=== PATIENT | female | born 1995 | race Caucasian/White ===

== ENCOUNTER 2023-08-13 02:21 | Emergency (ER) | payer OTHER, SELFPAY ==
[2023-08-13 02:23] VITALS: BP 132/81
[2023-08-13 02:37] VITALS: BP 158/85
[2023-08-13 02:39] VITALS: BMI 45.3
--- NOTE | 2023-08-13 02:46 | ED.GENMED ---
History of Present Illness
<CASTRO Small - Last Filed: 08/13/23 06:25>
General
Chief Complaint: Abdominal Pain
Source: patient
Exam Limitations: none
Time Seen by Provider: 08/13/23 02:32
Nursing documentation reviewed up to this point in time: agreed with
Travel History
Have you had any contact with someone who has COVID-19?: No
Do you have any symptoms of coronavirus? Fever > 100 degrees, chills, cough, shortness of breath, sore throat, loss of taste or smell, muscle aches, or headache?: No
History of Present Illness
History of Present Illness:
Pt is a 28 year old female with a PMH of MDD who presents to the ED c/o abdominal pain x 4 hours. Pt states she had a gallbladder attack 4 years ago and the pain she is experiencing today feels very similar. The pain is localized to her mid upper
abdomen and radiates to the right side of her abdomen. It is a constant pain that becomes more intense at times. She is also having associated nausea and 1 episode of emesis. Pt states she had a salad from [employer] for dinner and the pain started after
that. She adds that she is having trouble taking a normal deep breath. She denies any fever, chills, hematemesis, CP, bile in her vomit, lightheadedness, dizziness, LOC, or diarrhea.
Pt denies any alcohol, drug or tobacco use. Pt states she was told that she had a couple of stones in her gallbladder during her last attack. Pt denies any surgical history.
Past History
<CASTRO Small - Last Filed: 08/13/23 06:25>
Past History
ED Past Medical History: Psychiatric (major depressive disorder)
ED Past Surgical History: None
Patient has exhibited threatening behavior?: No
Social History
Tobacco: Non-smoker
Alcohol: None
Drug: None
Living: with family
Family History
Family History: Hypertension and Other (cholecystectomy in mother)
Review of Systems
<[place] CASTRO Gillis - Last Filed: 08/13/23 06:25>
Review of Systems
Allergies reviewed?: Yes
All Other Systems: ROS reviewed and negative except as documented in HPI and ROS
Constitutional: Reports no symptoms; Denies fever or chills
EENT: Reports no symptoms
Respiratory: Reports trouble breathing
Cardiac: Reports no symptoms; Denies chest pain
ABD/GI: Reports abdominal pain, nausea and vomiting; Denies diarrhea
: Reports no symptoms
Musculoskeletal: Reports no symptoms
Skin: Reports no symptoms
Neurological: Reports no symptoms; Denies dizzy
Psychiatric: Reports no symptoms
Phy Exam
<[place] ST ElisNH - Last Filed: 08/13/23 06:25>
General Physical Exam
General Presentation: no apparent distress
General age: appears stated age
General Skin: warm and dry
General Habitus: normal
General Mental: alert
General Hydration: appears well hydrated
ENT Exam
ENT Exam: neck supple, normocephalic and swallowing well
Cardiovascular Exam
Cardiovascular Exam: regular rate/rhythm, no edema, no murmur and normal peripheral pulses
Heart Sounds: normal
Pulmonary Exam
Pulmonary Exam: lungs clear, no respiratory distress, no rales, no crackles, no rhonchi, no wheezing and no cough
Oxygen Status: room air
Gastrointestinal Exam
Gastrointestinal Exam: normal bowel sounds, soft, non distended and tender (RUQ tenderness, no rebound, guarding or rigidity, No Mcburney's point tenderness)
Palpation: right upper quadrant: Mild tenderness
Neurological Exam
Neurological Exam: alert and oriented x3
Musculoskeletal Exam
Musculoskeletal Exam: full ROM and no edema
Skin Exam
Skin Exam: normal color and warm/dry
Psychiatric Exam
Psychiatric Exam: normal mood/affect
Course
<Mehran Gillis DAMARIS - Last Filed: 08/13/23 06:25>
Orders/Labs/Results
Orders:
Orders
08/13/23 02:44
IV Insert/Care/Rem.- Treatment PRN
Test Result ONCE
08/13/23 02:47
Complete Blood Count/With Diff Urgent
Comprehensive Metabolic Panel Urgent
HCG, Serum Qualitative Screen Urgent
Lipase Urgent
08/13/23 02:51
Crisis Consult Urgent
Reason for Consult: hx major depressive disorder, has had suicidal thoughts. no plan
08/13/23 02:56
EKG [Electrocardiogram (*1)] Urgent
Reason for Study: Abdominal Pain
EKG- Treatment ONCE
08/13/23 03:27
US Abdomen Complete/Upper Urgent
Comment:
Reason For Exam: ruq abd pain
Abnormal Lab Results
08/13/23
02:47
WBC 11.4 H 10^3/uL
(4.8-10.8)
MCH 31.3 H pg
(27.0-31.0)
Absolute Neuts (auto) 7.3 H 10^3/uL
(1.4-6.5)
Absolute Monos (auto) 0.9 H 10^3/uL
(0.1-0.6)
Glucose 109 H mg/dl
(70-99)
08/13/23 02:47
08/13/23 02:47
Vital Signs
Initial and Last Documented VS:
Initial Vital Signs
Temp Pulse Resp BP Pulse Ox
98.6 F 78 18 132/81 97
08/13/23 02:23 08/13/23 02:23 08/13/23 02:23 08/13/23 02:23 08/13/23 02:23
Last Documented Vital Signs
Temp Pulse Resp BP Pulse Ox
98.6 F 97 20 145/77 95
08/13/23 02:23 08/13/23 05:45 08/13/23 05:45 08/13/23 05:16 08/13/23 05:45
<Leo Farley, - Last Filed: 08/13/23 05:21>
Orders/Labs/Results
Orders:
Orders
08/13/23 02:44
IV Insert/Care/Rem.- Treatment PRN
Test Result ONCE
08/13/23 02:47
Complete Blood Count/With Diff Urgent
Comprehensive Metabolic Panel Urgent
HCG, Serum Qualitative Screen Urgent
Lipase Urgent
08/13/23 02:51
Crisis Consult Urgent
Reason for Consult: hx major depressive disorder, has had suicidal thoughts. no plan
08/13/23 02:56
EKG [Electrocardiogram (*1)] Urgent
Reason for Study: Abdominal Pain
EKG- Treatment ONCE
08/13/23 03:27
US Abdomen Complete/Upper Urgent
Comment:
Reason For Exam: ruq abd pain
Abnormal Lab Results
08/13/23
02:47
WBC 11.4 H 10^3/uL
(4.8-10.8)
MCH 31.3 H pg
(27.0-31.0)
Absolute Neuts (auto) 7.3 H 10^3/uL
(1.4-6.5)
Absolute Monos (auto) 0.9 H 10^3/uL
(0.1-0.6)
Glucose 109 H mg/dl
(70-99)
08/13/23 02:47
08/13/23 02:47
Vital Signs
Initial and Last Documented VS:
Initial Vital Signs
Temp Pulse Resp BP Pulse Ox
98.6 F 78 18 132/81 97
08/13/23 02:23 08/13/23 02:23 08/13/23 02:23 08/13/23 02:23 08/13/23 02:23
Last Documented Vital Signs
Temp Pulse Resp BP Pulse Ox
98.6 F 97 20 145/77 95
08/13/23 02:23 08/13/23 05:45 08/13/23 05:45 08/13/23 05:16 08/13/23 05:45
<CASTRO Small - Last Filed: 08/13/23 06:25>
*Critical Care Note
Total Time (30-74mins, 75-104mins- exclusive of procedures): Not Applicable
<CASTRO Small - Last Filed: 08/13/23 06:25>
Update Note
Update Note:
US ABD
IMPRESSION:
Multiple layering gallstones. No gallbladder wall thickening, pericholecystic fluid, or sonographic Cortes sign.
Common bile duct is somewhat prominent for age measuring 6 mm. Correlate with LFTs.
Unremarkable sonographic appearance of the liver, bilateral kidneys, spleen, and visualized pancreas.
Crisis cleared patient and provided her with resources. She does not need to be seen by them.
<Leo Farley DO - Last Filed: 08/13/23 05:21>
Update Note
Update Note:
US ABD
IMPRESSION:
Multiple layering gallstones. No gallbladder wall thickening, pericholecystic fluid, or sonographic Cortes sign.
Common bile duct is somewhat prominent for age measuring 6 mm. Correlate with LFTs.
Unremarkable sonographic appearance of the liver, bilateral kidneys, spleen, and visualized pancreas.
ED Attending Note
<CASTRO Small - Last Filed: 08/13/23 06:25>
-
Portions of this chart may have been created with voice recognition software.� Occasional wrong word or��sound alike� substitutions may have occurred due to the inherent limitations of voice recognition software.
<Leo Farley DO - Last Filed: 08/13/23 05:21>
ED Attending Note
Patient seen and examined by attending physician: Yes
I performed the substantive portion of visit, reviewed & personally made and approve the management plan that is documented in note by myself or JEET.: Yes
ED Attending Note:
Pleasant 28-year-old female presents with abdominal pain that has been present for the last 4 hours. She states that the pain is in the mid to right upper abdomen. She states that she has had this pain before. She denies any bowel or bladder
retention or constipation. Patient states that she has had similar pain several years ago which turned out to be biliary colic. She reports that the pain waxes and wanes but overall feels similar to previous gallbladder pain. Denies fever,
chills. Does report some nausea with 1 episode of emesis. Patient was seen in conjunction with the PA student. I have reviewed and agree with the history and treatment plan presented. On my independent physical exam, patient is awake, alert, and
oriented x3 patient has a mild right upper quadrant tenderness to palpation that I do not consider any Cortes sign. Same pain is epigastric in region. Plan discharge home since patient is currently pain-free. And discharged home with an
appointment with GI.
Discharge Plan
Departure
Patient Disposition: Home (Routine Discharge)
Date of Disposition: 08/13/23
Time of Disposition: 05:17
Patient with high blood pressure during this ER visit?: Yes
Consults for patient: Crisis
Condition: Good
Discharge Problem:
Biliary colic
Instructions: Gallstones (DC), Abdominal Pain
Prescriptions:
No Action
No Current Medications
0
Referrals:
Mahendra Bush MD [Active] - As needed
Ariela Allen [Active] -
Activity Restrictions/Additional Instructions:
It was a pleasure meeting you and taking part in your care. We hope for your continued healing and wellness.
Please read discharge instructions in their entirety. However, they are for general education and may not describe your exact diagnosis at discharge. Information on your ER visit and medical conditions were discussed with you along with appropriate
follow up information...
If indicated, please take your medications as instructed and indicated on discharge paperwork.
Please schedule a follow up appointment as directed. Call to schedule an appointment
Please return to the emergency department with ANY change in, persisting, or worsening of symptoms. If any of your symptoms do not improve, or persist, or become more severe within 6-12 hours, please return to the emergency department for further
care.
Please return to the emergency department if you develop a headache, neck pain/stiffness, fever greater than 100.4F, chest pain, shortness of breath, persistent nausea, vomiting, slurred speech, difficulty walking, numbness/tingling, weakness, signs
of infection or any other symptoms that are worrisome to you.
If you have any questions or concerns please do not hesitate to call the Hospital at or E-mail me directly at [email or web address]
Interventions
Interventions:
*Risk Screen - Suicide Last Done: 08/13/23 02:23
*General Assessment Last Done: 08/13/23 02:23
*Neglect/Abuse Screening Last Done: 08/13/23 02:23
ED- Fall Risk Assessment Last Done: 08/13/23 02:23
*ED COVID-19 Vaccine History Last Done: 08/13/23 02:23
*Nursing Disposition Last Done: 08/13/23 05:45
SO-Vjweuq-Bmnbxiflme Assessment Last Done: 08/13/23 02:35
Discharge Date and Time
Discharge Date/Time: 08/13/23 05:45
[2023-08-13 03:00] VITALS: BP 140/77
[2023-08-13 03:16] LABS: % Basophils 0.4 % (0-2); % Eosinophils 0.9 % (0-6); % Immature Granulocytes 0.4 % (0-0.5); % Lymphocytes 26.5 % (20.5-51.1); % Monocytes 7.9 % (1.7-9.3); % Neutrophils 63.9 % (42.2-75.2); Absolute Eosinophils 0.1 10^3/uL (0-0.7); Absolute Monocytes 0.9 10^3/uL (0.1-0.6); Absolute Neutrophils 7.3 10^3/uL (1.4-6.5); Hemoglobin 14.8 g/dL (12.0-16.0); Mean Corp Hgb Conc. 36.1 g/dL (33.0-37.0); Mean Corpuscular Hgb 31.3 pg (27.0-31.0); Mean Corpuscular Volume 86.7 fL (81.0-99.0); Mean Platelet Volume 8.6 fL (7.4-10.4); Nucleated Red Blood Cells % 0 %; Platelet Count 313 10^3/uL (130-400); Red Blood Cell Count 4.73 10^6/uL (4.20-5.40); Red Cell Dist. Width 12.6 % (11.5-14.5); White Blood Cell Count 11.4 10^3/uL (4.8-10.8)
[2023-08-13 03:43] LABS: ALT (SGPT) 35 U/L (0-35); AST (SGOT) 28 U/L (14-36); Albumin 4.3 g/dl (3.5-5.0); Alkaline Phosphatase 62 U/L (38-126); Blood Urea Nitrogen 16 mg/dl (7-17); Calcium 9.5 mg/dl (8.4-10.2); Carbon Dioxide 25 mmol/L (22-30); Chloride 103 mmol/L (98-107); Estimated Creatinine Clearance > 125 ml/min; Glucose 109 mg/dl (70-99); Lipase 139 U/L (23-300); Sodium 137 mmol/L (135-145); Total Bilirubin 0.5 mg/dl (0.2-1.3); Total Protein 7.3 g/dl (6.3-8.2); eGFR > 60.00
[2023-08-13 03:46] LABS: HCG, Serum Qualitative Screen Negative
[2023-08-13 04:00] VITALS: BP 127/65
[2023-08-13 04:34] VITALS: BP 131/73
[2023-08-13 05:16] VITALS: BP 145/77
== END 2023-08-13 05:45 | disposition home or self-care (01) ==
LOC: EMR 02:21
PROVIDERS: EMERGENCY PHYSICIAN Student in an Organized Health Care Education/Training Program
DX: K80.50 Calculus of bile duct without cholangitis or cholecystitis without obstruction (principal); R03.0 Elevated blood-pressure reading, without diagnosis of hypertension; F32.9 Major depressive disorder, single episode, unspecified
CPT/HCPCS: 99285; 76700; 80053; 83690; 84703; 85025; 93005